=== PATIENT | female | born 1990 | race African-American/Black ===

== ENCOUNTER 2022-07-21 02:14 | Emergency (ER) | payer BC, SELFPAY ==
[2022-07-21 02:17] VITALS: BP 151/86; PULSE 92; RESP 14; TEMP 36.6; O2SAT 100
[2022-07-21 02:21] VITALS: BP 160/74; PULSE 64; RESP 13; TEMP 36.8; O2SAT 98
[2022-07-21] MEDS: ACETAMINOPHEN 500 MG TABLET 1000 MG PO (03:00)
--- NOTE | 2022-07-21 03:25 | ED.SKABFB ---
HPI - Skin/Abscess/Foreign Bdy General Chief complaint: Skin/Abscess/Foreign Body Stated complaint: groin abcess Time Seen by Provider: 07/21/22 02:34 History of Present Illness HPI narrative: This is a 31-year-old female with no significant past medical history, who presents to the emergency department complaining of right-sided groin pain for the past 2 days. She describes the pain as dull and intermittently sharp, rated 10/10 and associated with a growing mass. Related Data Allergies Allergy/AdvReac Type Severity Reaction Status Date / Time aspirin AdvReac Hives Verified 07/21/22 02:33 Penicillins AdvReac Hives Verified 07/21/22 02:32 Review of Systems Review of Systems: CONSTITUTIONAL: Denies fever, chills, or sweats. CARDIOVASCULAR: Denies chest pain, palpitations, or edema. RESPIRATORY: Denies cough or dyspnea. GASTROINTESTINAL: Denies abdominal pain, nausea, vomiting, or diarrhea. GENITOURINARY: Denies dysuria or hematuria. SKIN: Painful mass of right groin denies rash or itching. MUSCULOSKELETAL: Denies back pain, joint pain, or myalgia. NEUROLOGIC: Denies headache, numbness, dizziness, or weakness. PSYCHIATRIC: Denies anxiety or depression. PMFSH Past Medical History Medical History (Updated 07/21/22 @ 03:29 by Hank Lemos MD) No significant past medical history Surgical History Surgical History (Updated 07/21/22 @ 03:29 by Hank Lemos MD) No significant past surgical history Social History Social History (Updated 07/21/22 @ 03:29 by Hank Lemos MD) Smoking status: Never smoker Alcohol intake: current Drinks per week: 1 Substance use: never Exam Narrative: GENERAL: Well-developed, well-nourished, and in no acute distress. HEAD: Normocephalic, atraumatic. EYES: PERRLA and EOMI. CHEST: Clear to auscultation. No respiratory distress. No wheezes rales or rhonchi HEART: Regular rate and rhythm. No murmur heard. Normal peripheral pulses. ABDOMEN: Soft, nontender, nondistended, normal active bowel sounds. EXTREMITIES: Normal range of motion. No edema. SKIN: A tender, fluctuant, indurated approximately 1 x 2 cm is noted in the right groin consistent with abscess. The skin is otherwise warm, dry, no rash. NEURO: No focal deficits. Alert and oriented x3. PSYCH: Normal mood and affect. Course Course Emergency Course: 03:00 - bedside ultrasound performed by me demonstrates a 2 x 1 cm hypoechoic mass consistent with abscess. 03:25 - Abscess of the right groin incised and drained. Please see procedure note. The patient tolerated the procedure well. Will discharge with recommendations for wound care and primary care follow-up. Discussed return and emergency precautions including signs/symptoms of abscess reformation and sepsis. The patient voiced understanding and is comfortable with the plan. All questions answered to her satisfaction. Vital Signs Vital signs: Vital Signs Temperature 98 F 07/21/22 02:17 Pulse Rate 92 07/21/22 02:17 Respiratory Rate 14 07/21/22 02:17 Blood Pressure 151/86 H 07/21/22 02:17 Pulse Oximetry 100 07/21/22 02:17 Oxygen Delivery Room Air 07/21/22 02:17 Temperature 98.2 F 07/21/22 02:21 Pulse Rate 64 07/21/22 02:21 Respiratory Rate 13 07/21/22 02:21 Blood Pressure 160/74 H 07/21/22 02:21 Pulse Oximetry 98 07/21/22 02:21 Oxygen Delivery Room Air 07/21/22 02:21 Procedures Abscess I/D other: Date of Incision: 07/21/22 Time of Incision: 03:10 Side (if applicable): right Local Anesthetic: lidocaine 1% and with epi Amount of anesthesia used (mL): 10 Technique: incised with #11 blade Amount of fluid expressed (mL): 3 Irrigation: Yes Packing used?: none I&D Results: Pus and Blood Complications: other (None) Abcess I&D Additional Comments: Abscess of the right groin, just medial to the inguinal ligament Discharge
[2022-07-21] MEDS: LIDO 1%/EPINEPHRINE 1:100,000 20 ML VIAL INFILTRATE (03:31)
== END 2022-07-21 03:32 | disposition home or self-care (01) ==
PROVIDERS: Emergency Provider Preventive Medicine Aerospace Medicine
DX: L02.214 Cutaneous abscess of groin (principal)
CPT/HCPCS: 10060; 99282; A9270

== ENCOUNTER 2023-06-07 23:49 | Emergency (ER) | payer BC, SELFPAY ==
--- NOTE | ~2023-06-07 | XR_ITS ---
EXAMINATION: XR chest 2V DATE: 06/08/2023 00:16 INDICATION: Shortness of breath. Midsternal chest pain. TECHNIQUE: Frontal and lateral views of the chest were obtained. COMPARISON: None. FINDINGS: There is no pneumonia, pleural effusion, or pneumothorax. The heart size is normal. IMPRESSION: 1. No acute cardiopulmonary disease. Reviewed, dictated and finalized at location E.
--- NOTE | 2023-06-07 23:51 | ECG_ITS ---
SEE SCANNED COPY FOR CONFIRMED REPORT MTDD
[2023-06-07 23:52] VITALS: BP 136/67; PULSE 90; RESP 16; TEMP 36.3; O2SAT 100
[2023-06-08 00:18] LABS: Basophils Percent Auto 0.5 % (0.2-1.2); Eosinophils Absolute Auto 0.1 K/mm3 (0-0.3); Eosinophils Percent Auto 1.8 % (0-4.4); Hematocrit 36.6 % (37.0-47.0); Hemoglobin 11.5 g/dL (12.0-15.0); Immature Granulocyte Absolute 0.03 K/mm3 (0.00-0.031); Immature Granulocyte Percent A 0.5 % (0-0.5); Lymphocytes Absolute Auto 2.78 K/mm3 (0.9-3.2); Lymphocytes Percent Auto 46.5 % (18.3-44.2); Mean Corpuscular HGB Conc 31.4 g/dl (32-36); Mean Corpuscular Hemoglobin 27.6 pg (26-34); Mean Corpuscular Volume 87.8 fl (80-100); Mean Platelet Volume 9.8 fl (7.4-10.4); Monocytes Absolute Auto 0.4 K/mm3 (0.1-0.6); Monocytes Percent Auto 5.9 % (2.6-8.5); Neutrophils Absolute Auto 2.7 K/mm3 (1.3-6.7); Neutrophils Percent Auto 44.8 % (45.5-73.1); Platelet Count Result 352 k/mm3 (150-375); Red Blood Count 4.17 M/mm3 (4.2-5.4); Red Cell Distribution Width 13.6 % (11.5-14.5)
[2023-06-08 00:28] LABS: Alanine Aminotransferase 19 U/L (6-35); Albumin Level 4.2 g/dL (3.5-5.1); Alkaline Phosphatase 112 U/L (38-126); Anion Gap 5 mmol/L (4-12); Aspartate Amino Transferase 21 U/L (14-36); Bilirubin,Total 0.4 mg/dL (0.2-1.3); Blood Urea Nitrogen 15 mg/dL (7-17); Carbon Dioxide 27 mmol/L (22-30); Chloride 109 mmol/L (98-107); Estimated CRCL calculation 161 ml/min; Estimated Glomerular Filt Rate > 60; Glucose 103 mg/dL (65-110); Potassium 3.7 mmol/L (3.4-5.0); Sodium 141 mmol/L (137-145)
[2023-06-08 00:39] LABS: Troponin I < 0.012 ng/mL (0.000-0.034)
[2023-06-08 00:53] LABS: Influenza A QL RT-PCR Negative (Negative); Influenza B QL RT-PCR Negative (Negative); RSV RNA, RT-PCR Negative (Negative); SARS-CoV-2 RNA PCR Negative (Negative)
--- NOTE | 2023-06-08 01:52 | ED.GENADULT ---
HPI - General Adult General Chief complaint: Shortness of Breath/Dyspnea Stated complaint: sob, cp, congestion Time Seen by Provider: 06/08/23 01:41 History of Present Illness HPI narrative: Patient is a 32-year-old female who presents emergency department with chief complaint of cough shortness of breath and nasal congestion patient reports for just under 2 weeks she has been having some cough feeling as though she is short of breath and congested patient reports she has had a productive cough with this it has been of clearish yellow sputum. The patient denies fever reports that her daughter is also sick too. Patient reports that she has pleuritic type pain whenever she takes a deep breath or coughs Related Data Allergies Allergy/AdvReac Type Severity Reaction Status Date / Time aspirin AdvReac Hives Verified 07/21/22 02:33 Penicillins AdvReac Hives Verified 07/21/22 02:32 Review of Systems Review of Systems: A 10 system review of systems was completed on the patient and is negative except for what is stated in the HPI. Nursing and ancillary documentation was reviewed. [facility] Past Medical History Medical History No significant past medical history Surgical History Surgical History No significant past surgical history Social History Social History Smoking status: Never smoker Alcohol intake: current Drinks per week: 1 Substance use: never Exam Narrative: GENERAL: Well-appearing, well-nourished, and in no acute distress. HEAD: Normocephalic, atraumatic. EYES: PERRLA and EOMI. ENT: Nares clear, no rhinorrhea or epistaxis. Mucous membranes moist. NECK: Supple. CHEST: Clear to auscultation. No respiratory distress. HEART: Regular rate and rhythm. No murmur heard. Normal peripheral pulses. ABDOMEN: Soft, nontender, nondistended, normal active bowel sounds. EXTREMITIES: Normal range of motion. No edema. SKIN: Warm, dry, no rash. NEURO: No focal deficits. Alert and oriented x3. PSYCH: Normal mood and affect. Course Vital Signs Vital signs: Vital Signs Temperature 36.3 C L 06/07/23 23:52 Pulse Rate 90 06/07/23 23:52 Respiratory Rate 16 06/07/23 23:52 Blood Pressure 136/67 06/07/23 23:52 Pulse Oximetry 100 06/07/23 23:52 Oxygen Delivery Room Air 06/07/23 23:52 Temperature 36.3 C L 06/07/23 23:52 Pulse Rate 90 06/07/23 23:52 Respiratory Rate 16 06/07/23 23:52 Blood Pressure 136/67 06/07/23 23:52 Pulse Oximetry 100 06/07/23 23:52 Oxygen Delivery Room Air 06/07/23 23:52 Medical Decision Making MDM Narrative Medical decision making narrative: Differential diagnosis includes pneumonia, viral illness, COVID flu, RSV ACS EKG showed no acute ischemic changes troponin was negative laboratory studies were otherwise within normal limits COVID flu RSV were negative chest x-ray showed no focal infiltrate. The patient's symptoms are most likely consistent with a viral upper respiratory infection. The patient was started on a pulse dose of steroids is also given an inhaler and a antitussive Vital Signs Vital Signs: Vital Signs Temperature 36.3 C L 06/07/23 23:52 Pulse Rate 90 06/07/23 23:52 Respiratory Rate 16 06/07/23 23:52 Blood Pressure 136/67 06/07/23 23:52 Pulse Oximetry 100 06/07/23 23:52 Oxygen Delivery Room Air 06/07/23 23:52 Temperature 36.3 C L 06/07/23 23:52 Pulse Rate 90 06/07/23 23:52 Respiratory Rate 16 06/07/23 23:52 Blood Pressure 136/67 06/07/23 23:52 Pulse Oximetry 100 06/07/23 23:52 Oxygen Delivery Room Air 06/07/23 23:52 Lab Data 06/08/23 00:09 06/08/23 00:09 Labs: Lab Results 06/08/23 Range/Units 00:09 WBC 6.0 (4.5-10.0) K/mm3 RBC 4.17 L (4.2-5.4)
[2023-06-08 02:00] VITALS: BP 131/100; PULSE 82; RESP 18; O2SAT 100
[2023-06-08] MEDS: predniSONE 20 MG TABLET 60 MG PO (02:01)
[2023-06-08] MEDS: BENZONATATE 100 MG CAPSULE 200 MG PO (02:01)
[2023-06-08] MEDS: ALBUTEROL SULFATE (*SP) INHALER 2 PUFF INHALATION (02:17)
== END 2023-06-08 02:25 | disposition home or self-care (01) ==
LOC: ANHED 06-08 02:03
PROVIDERS: Emergency Provider Emergency Medicine
DX: J06.9 Acute upper respiratory infection, unspecified (principal); Z20.822 Contact with and (suspected) exposure to COVID-19
CPT/HCPCS: 36415; 71046; 80053; 84484; 85025; 87637; 93005; 94664; 99284; A9270; J7512